=== PATIENT | female | born 2000 | race Caucasian/White ===

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

== ENCOUNTER 2021-01-24 14:48 | Emergency (ER) | payer SELFPAY ==
[2021-01-24 14:49] VITALS: BP 118/91; PULSE 80; RESP 16; TEMP 36.8; O2SAT 95; BMI 36.6
--- NOTE | 2021-01-24 15:00 | XR_ITS ---
PROCEDURE: XR ANKLE RT MIN 3V CLINICAL INDICATION: ankle injury Pain COMPARISON: No exams were available for comparison FINDINGS: No fracture or dislocation. No lytic or blastic change. There is normal mineralization. The joint spaces are well-preserved. No significant degenerative/arthritic changes. No erosive changes evident. Other findings:None. IMPRESSION: No acute findings. Dictated by: Abhijit Scott MD 01/24/2021 15:37 Abhijit Scott MD in [place] 01/24/2021 15:37
--- NOTE | 2021-01-24 15:13 | HMH.EDGENADL ---
ED Disposition Clinical Impression: Ankle sprain Disposition: Home, Self-Care Condition on Discharge: Good Instructions: Ankle Sprain Additional Instructions: Follow-up with your primary care physician within the next week, return to emergency department for worsening pain swelling or any other concerns within the next 1 to 2 days Prescriptions: Naproxen 500 mg PO BID #20 tab Transmission Status: Pending to [facility] Referrals: Yamil Cooper [Primary Care Provider] - - Critical Care Critical Care Time: No Attestation: On 01/24/21, the high probability of a clinically significant, sudden or life threatening deterioration of the following system(s) required my full and direct attention, intervention and personal management. The time I documented below is in addition to time spent performing reported procedures but includes the following listed in this critical care notation. Medical Decision Making - Medical Records Medical records reviewed: Yes: I reviewed the patient's medical records. - Pro Inquiry Pt receiving controlled substance: No Vital Signs: 01/24/21 14:49 01/24/21 15:21 Temperature 98.2 F Temperature Source Oral Pulse Rate 90 Pulse Rate [Right Radial] 80 Respiratory Rate 16 Blood Pressure 108/74 L Blood Pressure [Right Arm] 118/91 H Blood Pressure Mean 86 Blood Pressure Mean [Right Arm] 100 02 Sat by Pulse Oximetry 95 97 Oxygen Delivery Method Room Air Orders (Tests/Meds): ED MEDICATIONS Discontinued Medications Generic Name Dose Route Start Last Admin Trade Name Freq PRN Reason Stop Dose Admin Ibuprofen 600 mg 01/24/21 15:09 01/24/21 15:15 Ibuprofen 600 Mg Tablet PO 01/24/21 15:10 600 mg ONCE ONE Administration Medical Decision Narrative: 20-year-old female presents with right ankle injury. No concern for dislocation. Screening x-ray has been ordered. Recommended ice and RICE treatment and anti-inflammatories have been given. For fracture plan to give Anjel wrap and recommend follow-up with primary care physician within the week General Adult HPI - General Chief complaint: PAIN Stated complaint: ao @ 1445 injury to Rt ankle Time Seen by Provider: 01/24/21 15:00 Mode of Arrival: Wheelchair Limitations: Physical Limitations Description of Symptoms (Recalled from ER Triage Doc. by RN): Pt states she fell out of the back of her car, has right ankle injury. - History of Present Illness HPI narrative: Female presents with right ankle injury. She says she was stepping out of a car and twisted her right ankle. She has swelling, constant pain dull nonradiating difficulty bearing weight. No other injuries did not fall and hit her head. Is not Onset (ago): hour(s) (1) Radiation: other (None) Severity: mild Quality: dull - Related Data Home Medications Medication Instructions Recorded Confirmed albuterol 90 mcg/actuation aerosol mcg INHALATION 07/13/18 08/15/18 inhaler Previous Rx's Medication Instructions Recorded [id number] 10 ml PO Q4-6H PRN #200 ml 08/15/18 2 mg-30 mg-10 mg/5 mL oral syrup Amoxicillin [Amoxicillin 500mg 500 mg PO TID #21 cap 09/01/18 Cap] Azithromycin [Z-Mick 250mg Tab*] 250 mg PO UD DOSE PK #6 tab 11/23/18 predniSONE [Prednisone 10mg Tab 10 mg PO UD DOSE PK #21 pack 11/23/18 Dose-Pack] Naproxen 500 mg PO BID #20 tab 01/24/21 Allergies Allergy/AdvReac Type Severity Reaction Status Date / Time fish oil [FISH OIL] Allergy Unknown Verified 08/15/18 15:46 [facility] History - Hepatitis A Screen Drug use history?: No High risk sexual behaviors?: No History of sexually transmitted infection?: No Currently employed?: No Childcare worker?: No Do you have indoor plumbing?: Yes Do you have electricity?: Yes Attestation statement:: This patient has been screened for Hepatitis A risk factors. Medical History: Reports:: Asthma Denies:: Cancer, D
[2021-01-24 15:21] VITALS: BP 108/74; PULSE 90; O2SAT 97
[2021-01-24 15:56] VITALS: BP 126/76; PULSE 78; RESP 16; TEMP 36.9; O2SAT 100
== END 2021-01-24 16:03 | disposition home or self-care (01) ==
PROVIDERS: Emergency Provider Emergency Medicine; PCP Pediatrics
DX: S93.401A Sprain of unspecified ligament of right ankle, initial encounter (principal); X50.1XXA Overexertion from prolonged static or awkward postures, initial encounter; Y92.89 Other specified places as the place of occurrence of the external cause
CPT/HCPCS: 73610; 99282

== ENCOUNTER 2021-06-17 15:02 | Emergency (ER) | payer MEDICAID, SELFPAY ==
[2021-06-17 16:29] VITALS: BP 131/84; PULSE 82; RESP 18; TEMP 36.8; O2SAT 96; BMI 33.4
--- NOTE | 2021-06-17 17:09 | HMH.EDUTC ---
[facility] [place] Clinical Impression: Upper respiratory infection Qualifiers: URI type: unspecified URI Qualified Code(s): J06.9 - Acute upper respiratory infection, unspecified Disposition: Home, Self-Care Condition on Discharge: Good Instructions: DI for Strep Throat, Strep Throat, Amoxicillin Additional Instructions: *Monitor Temp, Over the counter Motrin or Tylenol as directed/as needed Tylenol every 4 hours and Motrin every 6 hours (as long as your family doctor has told you that you can take it) for fever or pain. and straight to ER if unable to lower temp less than 101.0 after medication given *Warm salt water gargles may help to soothe the throat *Throat Lozenges *Warm fluids like tea with honey may help to soothe the throat *Sleep elevated *Humidifier/Vaporizer Take medication as prescribed Return if needed Follow up IMMEDIATELY for new or worsening symptoms or no Noticeable improvement over the next 48-72 hours. 911 for difficulty breathing or swallowing Prescriptions: Amoxicillin [Amoxicillin 500mg Cap] 500 mg PO BID 10 Days #20 cap Transmission Status: Pending to [facility] Referrals: Yamil Cooper [Primary Care Provider] - As needed Time of Disposition: 17:13 Medical Decision Making - Pro Inquiry Pt receiving controlled substance: No Pro was queried for this patient: No Vital Signs: 06/17/21 16:29 Temperature 98.3 F Temperature Source Oral Pulse Rate [Right Radial] 82 Respiratory Rate 18 Blood Pressure [Right Arm] 131/84 Blood Pressure Mean [Right Arm] 99 Blood Pressure Source [Right Arm] Automatic Cuff Blood Pressure Position [Right Arm] Sitting 02 Sat by Pulse Oximetry 96 Oxygen Delivery Method Room Air [facility] [place] [place] - General Stated complaint: Cough Time Seen by Provider: 06/17/21 17:09 Mode of Arrival: Ambulatory Source of Information: Patient Limitations: No Limitations Description of Symptoms (Recalled from Triage Doc. by RN): C/O cough, runny nose x2 days HEENT Symptoms (Recalled from RN notes): Yes (runny nose) Resp Symptoms (Recalled from RN notes): Yes (cough) Skin Symptoms (Recalled from RN notes): No MS Symptoms (Recalled from RN notes): No Functional Status (Recalled from RN notes): n/a - History of Present Illness Provider Complaint: Patient states that she has been having cough, sore throat, runny nose and feeling achy States that she is 14wks OB and her daughter recently tested postive for strep throat and she feels like she may have it now too so she came in - Related Data Home Medications Medication Instructions Recorded Confirmed albuterol 90 mcg/actuation aerosol mcg INHALATION 07/13/18 08/15/18 inhaler Previous Rx's Medication Instructions Recorded ckomwxdgazsfooa-nquplvzemsesfjz-TK 10 ml PO Q4-6H PRN #200 ml 08/15/18 2 mg-30 mg-10 mg/5 mL oral syrup Amoxicillin [Amoxicillin 500mg 500 mg PO TID #21 cap 09/01/18 Cap] Azithromycin [Z-Mick 250mg Tab*] 250 mg PO UD DOSE PK #6 tab 11/23/18 predniSONE [Prednisone 10mg Tab 10 mg PO UD DOSE PK #21 pack 11/23/18 Dose-Pack] Naproxen 500 mg PO BID #20 tab 01/24/21 Amoxicillin [Amoxicillin 500mg 500 mg PO BID 10 Days #20 cap 06/17/21 Cap] Allergies Allergy/AdvReac Type Severity Reaction Status Date / Time fish oil [FISH OIL] Allergy Unknown Verified 08/15/18 15:46 - Worker's Comp Is this a Worker's Comp case?: No [facility] History - Hepatitis A Screen Drug use history?: No High risk sexual behaviors?: No History of sexually transmitted infection?: No Currently employed?: No Childcare worker?: No Do you have indoor plumbing?: Yes Do you have electricity?: Yes Attestation statement:: This patient has been screened for Hepatitis A risk factors. I have reviewed the patient's past medical history: Yes Medical History: Reports:: Asthma Denies:: Cancer, Diabetes Mellitus Type 1, Diabetes Mellitus Type 2, Hypertension, MRSA Other Surgeries: Yes: No Pre
[2021-06-17 17:25] VITALS: BP 131/84; PULSE 82; RESP 18; TEMP 36.8; O2SAT 96
== END 2021-06-17 17:27 | disposition home or self-care (01) ==
PROVIDERS: Emergency Provider Nurse Practitioner; PCP Pediatrics
DX: J06.9 Acute upper respiratory infection, unspecified (principal)
CPT/HCPCS: 99202; G0463

== ENCOUNTER 2021-06-28 13:27 | Emergency (ER) | payer MEDICAID, SELFPAY ==
[2021-06-28 13:28] VITALS: BP 108/66; PULSE 95; RESP 18; TEMP 36.9; O2SAT 97; BMI 33.4
[2021-06-28 14:19] LABS: Microscopic, Urine URINE MICROSCOPIC (MICROSCOPIC)
[2021-06-28 14:24] LABS: Basophils # 0.1 K/mm3 (0-0.2); Basophils % 0.6 % (0.1-2.0); Eosinophils # 0.2 K/mm3 (0.0-0.4); Eosinophils % 2.4 % (0.1-12.0); Hematocrit 37.3 % (37.0-47.0); Hemoglobin 12.6 g/dL (12.2-16.2); Lymphocytes # 1.7 K/mm3 (0.7-4.5); Lymphocytes % 18.9 % (10-50); Mean Corpuscular HGB Conc 33.8 g/dL (31.8-35.4); Mean Corpuscular Hemoglobin 27.6 pg (27.0-31.2); Mean Corpuscular Volume 81.8 fl (81-99); Mean Platelet Volume 7.6 fl (7.4-10.4); Monocytes # 0.3 K/mm3 (0.1-1.0); Monocytes % 3.4 % (1.7-9.3); Neutrophils # 6.7 K/mm3 (1.8-7.8); Neutrophils % 74.7 % (37.0-80.0); Platelet Count 313 K/mm3 (142-424); Red Blood Count 4.56 M/mm3 (4.20-5.40); Red Cell Distribution Width 15.9 % (11.5-17.5)
--- NOTE | 2021-06-28 14:24 | HMH.EDGENADL ---
ED Disposition Clinical Impression: Lower abdominal pain Qualifiers: Weeks of gestation: 16 weeks Qualified Code(s): Z3A.16 - 16 weeks gestation of Disposition: Home, Self-Care Condition on Discharge: Good Instructions: DI for Acute Abdominal Pain Additional Instructions: If pain persist, call your fire chief's aide on Wednesday for further care. Return to the emergency department if worsening/severe pain, or new symptoms such as vomiting, fever, vaginal bleeding. You may use [id number] stool softeners for constipation. Referrals: Yamil Cooper [Primary Care Provider] - - Critical Care Critical Care Time: No Attestation: On 06/28/21, the high probability of a clinically significant, sudden or life threatening deterioration of the following system(s) required my full and direct attention, intervention and personal management. The time I documented below is in addition to time spent performing reported procedures but includes the following listed in this critical care notation. Medical Decision Making - Pro Inquiry Pt receiving controlled substance: No Vital Signs: 06/28/21 13:28 Temperature 98.4 F Temperature Source Oral Pulse Rate [Left Radial] 95 H Respiratory Rate 18 Blood Pressure [Left Arm] 108/66 L Blood Pressure Mean [Left Arm] 80 Blood Pressure Source [Left Arm] Automatic Cuff Blood Pressure Position [Left Arm] Sitting 02 Sat by Pulse Oximetry 97 Oxygen Delivery Method Room Air - Lab Data Lab Results 06/28/21 13:50: Urine Color Yellow, Urine Appearance Clear, Urine pH 7.0, Ur Specific Clarence <= 1.005, Urine Protein Negative, Urine Glucose (UA) Negative, Urine Ketones Negative, Urine Blood Negative, Urine Nitrate Negative, Urine Bilirubin Negative, Urine Urobilinogen 0.2, Ur Leukocyte Esterase Trace, Urine RBC None, Urine WBC 5-10, Ur Squamous Epith Cells 10-20, Urine Bacteria Trace 06/28/21 13:50: Urine HCG, Qual Positive 06/28/21 14:03: WBC 9.0, RBC 4.56, Hgb 12.6, Hct 37.3, MCV 81.8, MCH 27.6, MCHC 33.8, RDW 15.9, Plt Count 313, MPV 7.6, Neut % (Auto) 74.7, Lymph % (Auto) 18.9, Hamilton % (Auto) 3.4, Eos % (Auto) 2.4, Baso % (Auto) 0.6, Neut # (Auto) 6.7, Lymph # (Auto) 1.7, Hamilton # (Auto) 0.3, Eos # (Auto) 0.2, Baso # (Auto) 0.1 06/28/21 14:03: Sodium 136, Potassium 4.1, Chloride 105, Carbon Dioxide 23, Anion Gap 12.1, BUN 5 L, Creatinine 0.50 L, Estimated Creat Clear 256, Estimated GFR 156, Est GFR ( Amer) 188, Glucose 81, Calcium 8.9, Total Bilirubin 0.7, AST 19, ALT 13, Alkaline Phosphatase 53, Total Protein 7.2, Albumin 3.7, Globulin 3.5 H, Albumin/Globulin Ratio 1.1, Amylase 70, Lipase 40 06/28/21 14:03: Serum HCG, Qual Positive Result diagrams: 06/28/21 14:03 06/28/21 14:03 Orders (Tests/Meds): ED MEDICATIONS Discontinued Medications Generic Name Dose Route Start Last Admin Trade Name Freq PRN Reason Stop Dose Admin Sodium Chloride 1,000 mls @ 999 mls/hr 06/28/21 14:12 06/28/21 14:35 Sod Chlor 0.9% 1000ml Bag IV 06/28/21 15:12 999 mls/hr .Q1H1M ONE Administration ORDERS Category Date Time Status US OB <= 14 weeks fetus Stat Exams 06/28/21 14:32 Taken - US Data US Images: Pelvis Findings Narrative: As per [facility] procedure, ultrasound report received from carpet technician: Normal intrauterine almost 16 weeks. No signs of placental abruption or any other abnormalities. - Reevaluation(s) Time: 15:47 Reevaluation #1: Discussed results. Patient appears comfortable. Sitting upright in bed using the phone. General Adult HPI - General Chief complaint: Abdominal Pain Stated complaint: 15 wk , abd pain Time Seen by Provider: 06/28/21 14:15 Mode of Arrival: Ambulatory Limitations: No Limitations Description of Symptoms (Recalled from ER Triage Doc. by RN): Pt states that she is 15 weeks and 4 days and c/o lower abd pain. Pt denies any vaginal bleeding. Pt states that yesterday after urinati
[2021-06-28 14:31] LABS: Appearance,Urine CLEAR (Clear); Bilirubin,Urine Negative (Negative); Blood, Urine Negative (Negative); Color,Urine YELLOW (Yellow); Glucose,Urine (UA) Negative (Negative); Ketones,Urine Negative (Negative); Leukocyte Esterase,Urine TRACE (Negative); Nitrate,Urine Negative (Negative); Protein,Urine Negative (Negative); Specific Gravity, Urine <= 1.005 (1.005-1.030); Urine Pregnancy, HCG Qual. Positive (Negative); Urobilinogen,Urine 0.2 EU/dl (0.2)
--- NOTE | 2021-06-28 14:32 | US_ITS ---
PROCEDURE INFORMATION: Exam: US First Trimester, Transabdominal Exam date and time: 06/28/2021 2:32 PM Age: 20 years old Clinical indication: complicated by abdominal or pelvic pain; Lower; Second trimester (14 weeks 0 days to 27 weeks 6 days); maternal gestational age 15 weeks 4 days; ANNAMARIE December 16 ; Patient HX: Pelvic pain during preg; Additional info: , lower abdominal pain TECHNIQUE: Imaging protocol: Real-time transabdominal obstetrical ultrasound of the maternal pelvis and a first trimester , less than 14 weeks 0 days, with image documentation. COMPARISON: ABDPELW/O CT ABD PELVIS W/O CONTRAST 06/16/2015 4:28 PM FINDINGS: Gestation: Intrauterine gestation. Embryonic/ heart rate: Heart rate 143 bpm Extra-embryonic membranes/Placenta: Placenta previa.. Amniotic fluid: Amniotic fluid/chorionic fluid is normal for gestational age. BIOMETRY: Gestational age (AUA): Gestational age by ultrasound 16 weeks 2 days.. Estimated due date (AUA): ANNAMARIE December 11.. Estimated weight: Estimated weight 152 g 87 percentile.. Biparietal diameter: BPD 16 weeks 2 days 76% Head circumference: Head circumference 16 weeks 0 days 53% Abdominal circumference: Abdominal circumference 16 weeks 5 days 85% Femur length: Femur length 16 weeks 1 days 64% MATERNAL: Uterus: Unremarkable. Cervix: Cervix 4 cm Right adnexa: Right ovary 3.2 x 1.7 x 2.6 cm. Total volume 7.3 cc Left adnexa: Left ovary 3.3 x 2.19x 2.1 cm Intraperitoneal space: No intraperitoneal free fluid. IMPRESSION: 1. Gestational age by ultrasound 16 weeks 2 days.. 2. ANNAMARIE December 11.. 3. Estimated weight 152 g 87 percentile.. 4. Placenta previa..
[2021-06-28 14:34] LABS: Alanine Aminotransferase 13 U/L (12-78); Albumin Level 3.7 g/dl (3.5-5.0); Albumin/Globulin Ratio 1.1 (1.1-1.8); Alkaline Phosphatase 53 U/L (38-126); Amylase 70 U/L (30-110); Anion Gap 12.1 mEq/L (5-15); Aspartate Amino Transferase 19 U/L (14-36); Bilirubin,Total 0.7 mg/dl (0.2-1.3); Blood Urea Nitrogen 5 mg/dl (7-17); Calcium 8.9 mg/dl (8.4-10.2); Carbon Dioxide 23 mmol/L (22.0-30.0); Chloride 105 mmol/L (98-107); Creatinine Clearance Estimated 256 mL/min (50-200); Estimated Glomerular Filt Rate 156 ml/min (>60); GFR (African American) 188 ML/MIN (>60); Globulin 3.5 g/dL (1.3-3.2); Glucose 81 mg/dl (74-100); Lipase 40 U/L (23-300); Potassium 4.1 mmoL/L (3.5-5.1); Sodium 136 mmol/L (136-145); Total Protein,Serum 7.2 g/dl (6.3-8.2)
[2021-06-28 14:45] LABS: Bacteria,Urine Trace /lpf
[2021-06-28 15:19] LABS: HCG Qualitative, Serum Positive (Negative)
[2021-06-28 15:30] VITALS: BP 125/84; PULSE 70; RESP 18; O2SAT 100
[2021-06-28 16:01] VITALS: BP 125/84; PULSE 70; RESP 18; TEMP 36.9; O2SAT 100
== END 2021-06-28 16:03 | disposition home or self-care (01) ==
PROVIDERS: Emergency Provider Emergency Medicine; PCP Pediatrics
DX: R10.32 Left lower quadrant pain (principal); Z3A.16 16 weeks gestation of pregnancy; J45.909 Unspecified asthma, uncomplicated
CPT/HCPCS: 76801; 80053; 81001; 81025; 82150; 83690; 84703; 85025; 96365; 99283

== ENCOUNTER 2022-04-23 14:02 | Emergency (ER) | payer MEDICAID, SELFPAY ==
[2022-04-23 14:27] VITALS: BP 123/75; PULSE 97; RESP 18; TEMP 36.6; O2SAT 96; BMI 29.6
--- NOTE | 2022-04-23 14:29 | HMH.EDUTC ---
[facility] [place] Disposition Clinical Impression: Viral syndrome, Exposure to COVID-19 virus Disposition: Home, Self-Care Condition on Discharge: Good Instructions: DI for COVID-19 (Suspected or Confirmed ), Preventing the Spread of Coronavirus Discharge Instructions Additional Instructions: Drink plenty of fluids. Take tylenol or ibuprofen for pain or fever. Take the medications as directed. Follow up with your regular doctor. GO TO THE ER FOR ANY WORSENING SYMPTOMS Quarantine until you know the results of your covid-19 test. Notify your school or workplace of your results and follow their instructions regarding return to work/school. Prescriptions: Brompheniramine/Pseudoephed/Dm [Bromfed Dm Cough Syrup] 5 ml PO Q6HP PRN #240 ml PRN Reason: Cough Transmission Status: Received by [facility] Ondansetron [Zofran 4mg ODT] 4 mg PO Q8HP PRN #12 tab PRN Reason: Nausea Transmission Status: Received by [facility] Referrals: Yamil Cooper [Primary Care Provider] - Time of Disposition: 14:50 Medical Decision Making - Medical Records Medical records reviewed: No: I reviewed the patient's medical records. - Pro Inquiry Pt receiving controlled substance: No Vital Signs: 04/23/22 14:27 04/23/22 14:54 Temperature 97.9 F 97.9 F Temperature Source Oral Pulse Rate 97 H Pulse Rate [Left] 97 H Respiratory Rate 18 18 Blood Pressure 123/75 Blood Pressure [Right Arm] 123/75 Blood Pressure Mean [Right Arm] 91 02 Sat by Pulse Oxim[address] 96 [facility] [place] HPI - General Stated complaint: Covid exposure, cough, headache, vomitting Time Seen by Provider: 04/23/22 14:29 - History of Present Illness Provider Complaint: She states that for the past 2 days she has felt bad, had body aches and a fever - Related Data Home Medications Medication Instructions Recorded Confirmed albuterol 90 mcg/actuation aerosol mcg INHALATION 07/13/18 08/15/18 inhaler Previous Rx's Medication Instructions Recorded [id number]-PW 10 ml PO Q4-6H PRN #200 ml 08/15/18 2 mg-30 mg-10 mg/5 mL oral syrup Amoxicillin [Amoxicillin 500mg 500 mg PO TID #21 cap 09/01/18 Cap] Azithromycin [Z-Mick 250mg Tab*] 250 mg PO UD DOSE PK #6 tab 11/23/18 predniSONE [Prednisone 10mg Tab 10 mg PO UD DOSE PK #21 pack 11/23/18 Dose-Pack] Naproxen 500 mg PO BID #20 tab 01/24/21 Amoxicillin [Amoxicillin 500mg 500 mg PO BID 10 Days #20 cap 06/17/21 Cap] Brompheniramine/Pseudoephed/Dm 5 ml PO Q6HP PRN #240 ml 04/23/22 [Bromfed Dm Cough Syrup] Ondansetron [Zofran 4mg ODT] 4 mg PO Q8HP PRN #12 tab 04/23/22 Allergies Allergy/AdvReac Type Severity Reaction Status Date / Time fish oil [FISH OIL] Allergy Unknown Verified 04/23/22 14:30 [facility] [place] History - Hepatitis A Screen Attestation statement:: This patient has been screened for Hepatitis A risk factors. I have reviewed the patient's past medical history: Yes Medical History: Reports:: Asthma Denies:: Cancer, Diabetes Mellitus Type 1, Diabetes Mellitus Type 2, Hypertension, MRSA Other Surgeries: Yes: No Previous Surgery, Cholecystectomy, Other Amputation: No Fractures: No Comment: - Social History Smoking Status: Never smoker Alcohol Intake: never Occupational Status: student, employed Housing: house Household Members: friend(s) Family Hx:: No significant family history ROS Obtained: Yes All systems reviewed & no additional complaints - Constitutional Constitutional: Reports as per HPI - Eyes Eyes: Denies eye discharge - ENT Ears, Nose, Mouth, and Throat: Reports as per HPI - Cardiovascular Cardiovascular: Denies chest pain - Respiratory Respiratory: Denies chest congestion, Reports cough Physical Exam - General General appearance: alert, in no apparent distress - Head Head exam: atraumatic, normocephalic, normal inspection - Eye Eye exam: Present: normal appearance, PERRL, EOMI - ENT
[2022-04-23 14:54] VITALS: BP 123/75; PULSE 97; RESP 18; TEMP 36.6
== END 2022-04-23 14:55 | disposition home or self-care (01) ==
PROVIDERS: Emergency Provider Nurse Practitioner Family; PCP Pediatrics
DX: U07.1 COVID-19 (principal)
CPT/HCPCS: 99212; C9803; G0463; U0003; U0005